=== PATIENT | female | born 1950 | race Caucasian/White ===

== ENCOUNTER → 2016-04-14 | Outpatient (CLI) | payer MEDICARE, OTHER ==
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
--- NOTE | 2016-04-15 09:49 | MM ---
Reason for exam: screening (asymptomatic). Last mammogram was performed 1 year ago. History: Patient is postmenopausal. Family history of breast cancer in aunt. Physical Findings: A clinical breast exam by your physician is recommended on an annual basis and results should be correlated with mammographic findings. MG 3D Screening Mammo W/Cad Bilateral CC and MLO view(s) were taken. Prior study comparison: April 02, 2015, bilateral MG screening mammo w CAD. February 20, 2014, bilateral MG screening mammo w CAD. The breast tissue is almost entirely fat. There is chronic nodularity in the right breast. No significant changes when compared with prior studies. ASSESSMENT: Benign, BI-RAD 2 RECOMMENDATION: Routine screening mammogram of both breasts in 1 year.
== END | disposition home or self-care (01) ==
LOC: WWCWWP 15:42
PROVIDERS: ATTEND Obstetrics & Gynecology
DX: Z12.31 Encounter for screening mammogram for malignant neoplasm of breast (principal)
CPT/HCPCS: 77063; G0202

== ENCOUNTER → 2016-07-30 | Outpatient (CLI) | payer MEDICARE, OTHER ==
[2016-07-30 17:53] LABS: ALT 20 U/L (9-52); AST 26 U/L (14-36)
== END | disposition home or self-care (01) ==
LOC: LABWHC1 17:12
PROVIDERS: ATTEND Psychiatry & Neurology Psychiatry
DX: F33.9 Major depressive disorder, recurrent, unspecified (principal)
CPT/HCPCS: 36415; 80165; 84450; 84460

== ENCOUNTER → 2017-01-01 | Outpatient (CLI) | payer MEDICARE, OTHER ==
--- NOTE | 2017-01-05 13:18 | HM ---
HOLTER MONITOR REPORT A 24-hour Holter monitor shows sinus mechanism, heart rate 84 to 170 beats per minute. No significant pauses noted. Occasional premature beats noted. ORLIN / JOSEN: [id number] /
== END | disposition home or self-care (01) ==
LOC: RADECHMAIN 13:34
PROVIDERS: ATTEND Internal Medicine Interventional Cardiology
DX: R00.2 Palpitations (principal)
CPT/HCPCS: 93225; 93226

== ENCOUNTER → 2017-03-02 | Day surgery (SDC) | payer MEDICARE, OTHER ==
[2017-02-26 15:52] VITALS: BMI 26.1
--- NOTE | 2017-03-01 20:48 | HP ---
HISTORY AND PHYSICAL This is a 66-year-old lady with a family history of CAD, she also has hypertension, hyperlipidemia, palpitations and chest discomfort. Workup revealed that there was evidence of sinus rhythm and sinus tachycardia on a Holter, but a Lexiscan stress test revealed a moderate-sized anterior reversible defect and she was therefore advised to have a cardiac catheterization. The rationale, risks, benefits, and options were extensively discussed with the patient and she understood all details and wished to proceed with the procedure. Patient was originally scheduled for cardiac cath sometime in January, but she postponed this and it has been rescheduled due to February. She is aware of the rationale for cardiac cath, the risks, benefits, options and wishes to proceed. PAST MEDICAL HISTORY: Remarkable for some depression, question of TIA, CVA with full recovery, thyroid disease, right ankle fracture and surgery. CORONARY RISK FACTORS: The patient is a former smoker. She does not consume alcohol on a regular basis. MEDICATIONS: At home include 1. Levothyroxine. 2. Metoprolol tartrate. 3. Prevacid. 4. Inhalers. 5. Lyrica. 6. Trazodone. EXAM: On examination, blood pressure was 110/60, pulse rate about 64 per minute, regular. HEENT: Unremarkable. Fundus was not examined by me. NECK: Supple. There is no JVD. I do not hear any carotid bruit. Heart exam reveals S1, S2 heard normally without a rub, murmur or gallop. Lungs are clear. ABDOMEN: Soft, nontender. Lower extremities reveal palpable pulses. No edema. Central nervous system is normal. EKG revealed sinus mechanism with a nonspecific T-wave abnormality. IMPRESSION: 1. Chest pain with a abnormal stress test with anterior reversible defect. 2. History of depression. 3. Questionable history of transient ischemic attack in the past. 4. History of some unspecified neuropathy. RECOMMENDATIONS: I am recommending coronary angiography and intervention if indicated. Risks, benefits, options, rationale were carefully explained to the patient. She understood all details and wishes to proceed with the procedure. She was initiated on beta-blockers also. MMODL / IJN: [id number] /
[~2017-03-02] MED LIST: ALPRAZolam 0.25 MG TAB PO PRN; ALPRAZolam 0.5 MG TAB PO PRN; ASPIRIN 325 MG TAB PO STA; HEPARIN SODIUM 1,000 UN/ML (10ML VL) IV ONE; HEPARIN SODIUM 1,000 UN/ML (10ML VL) ONE; IOHEXOL 350 MG/ML 100 ML BOTTLE INJ ONE; LIDOCAINE 2% INJ 20 MG/ML (20 ML MDV) ONE; LIDOCAINE 2% INJ 20 MG/ML SQ ONE; MIDAZOLAM 2 MG/2 ML VIAL IV ONE; MIDAZOLAM 2 MG/2 ML VIAL ONE; NITROGLYCERIN SL TABS 0.4 MG TAB SUBLINGUAL PRN; RX INFO: IV CONTRAST WAS GIVEN 1 EACH MISC MISCELLANE PRN; SODIUM CHLORIDE 0.9% 1,000 ML IV SCH; SODIUM CHLORIDE 0.9% 1,000 ML in EMPTY BAG 1 BAG IV ONE; VERAPAMIL 2.5 MG/ML 2 ML AMP ONE; VERAPAMIL SYRINGE (5 MG/10 ML) INTRAARTER ONE; diphenhydrAMINE 50 MG/ML 1 ML VIAL IVP ONE; diphenhydrAMINE 50 MG/ML 1 ML VIAL ONE
[2017-03-02 08:48] VITALS: RESP 18
[2017-03-02 08:48] LABS: Basophils % (A) 0 %; CHCM 31.9; Eosinophils % (A) 0 %; HCT 41.6 % (34.0-46.0); HDW 2.15; HGB 13.2 gm/dL (11.4-16.0); Luc # (Auto) 0.02; Luc % (Auto) 0; Lymphocytes # (A) 0.4 k/uL (1.0-4.8); Lymphocytes % (A) 8 %; MCH 28.9 pg (25.0-35.0); MCHC 31.7 g/dL (31.0-37.0); MCV 91.2 fL (80.0-100.0); Mean Platelet Volume 8.7; Monocytes # (A) 0.3 k/uL (0-1.0); Monocytes % (A) 5 %; Neutrophils # (A) 4.9 k/uL (1.3-7.7); Neutrophils % (A) 86 %; RBC 4.57 m/uL (3.80-5.40); RDW 14.7 % (11.5-15.5); WBC 5.7 k/uL (3.8-10.6); WBC (Perox) 5.75
[2017-03-02 09:05] LABS: Anion Gap 10 mmol/L; Blood Urea Nitrogen 28 mg/dL (7-17); Calcium 9.8 mg/dL (8.4-10.2); Carbon Dioxide 25 mmol/L (22-30); Chloride 107 mmol/L (98-107); Glucose 122 mg/dL (74-99); Non-African American GFR(MDRD) >60 (>60 ml/min/1.73 sqM); Potassium 4.4 mmol/L (3.5-5.1); Sodium 142 mmol/L (137-145)
[2017-03-02] MEDS: MIDAZOLAM 2 MG/2 ML VIAL IV ONE ×2 (11:07→11:16)
[2017-03-02] MEDS: VERAPAMIL SYRINGE (5 MG/10 ML) IV ONE ×2 (11:15→11:28)
[2017-03-02 12:14] VITALS: TEMP 98.2
--- NOTE | 2017-03-02 12:55 | CC ---
CARDIAC CATHETERIZATION REPORT DATE OF SERVICE: 03/02/2017 PROCEDURE: Left heart catheterization, coronary angiography and left ventriculography. PERFORMED BY: Dr. Pam Singh. CLINICAL INFORMATION: Mrs. Kenzie Ritchie is a 66-year-old lady with a history of atypical chest pain, but a positive stress test with evidence of reversible defect in the anterior wall. Given this abnormality, she was advised cardiac catheterization. Risks, benefits, options, rationale were explained at length. PROCEDURE NOTE: Under local anesthesia and strict aseptic precautions, a 6-Yakut introducer was placed in the right radial artery using a micropuncture needle technique. An Ultimate 1 catheter was used to perform coronary angiography and a pigtail catheter was used to perform left ventriculography. After checking the pressures, the catheter and sheath was taken out and patient was sent to the room in stable condition. The Vasc band was applied as per protocol and saturation in the fingers of the right hand was about 97%. The patient tolerated procedure well without complications. Moderate conscious sedation time was 23 minutes. CARDIAC CATHETERIZATION FINDINGS: The left ventricular end-diastolic pressure was about 13 to 14 mmHg without any gradient across the aortic valve. CORONARY ANGIOGRAPHY FINDINGS: RIGHT CORONARY ARTERY: Technically a dominant vessel has no significant disease, minor irregularities. Distally bifurcates into a large PLV, small PDA both of which supply a fair amount of myocardium. There is no significant disease involving the distal branch of the RCA. LEFT MAIN CORONARY ARTERY: This is a short patent vessel that immediately trifurcates into LAD, circumflex and ramus intermedius. Left main itself is short and disease- free. LEFT ANTERIOR DESCENDING CORONARY ARTERY: Good caliber vessel, very tortuous, gives off 2 diagonal branches, several septal branches runs all the way to the apex and the entire inferoapical wall is supplied by the distal LAD, which seems to also provide some septal branches in the PDA distribution. The LAD therefore is a very large distribution vessel has no significant disease, gives of diagonal branches and the distal LAD seems to be effective PDA branch for this patient supplying some septal branches as well. RAMUS INTERMEDIUS: Small caliber small distribution vessel that bifurcates into 2 small branches, has minor irregularities. No significant disease. LEFT POSTERIOR CIRCUMFLEX CORONARY ARTERY: Single vessel that runs laterally, supplies a fair amount of myocardium and distal vessel is small in caliber and distribution. No significant disease. Minor irregularities noted. LEFT VENTRICULOGRAM: This was performed in 30-degree MOHAN projection. There was ventricular ectopy. Ejection fraction is at least 60%. There was catheter-induced mitral regurgitation. FINAL IMPRESSION: This patient has a right dominant system. There is no significant obstructive coronary artery disease. Filling pressures are normal. Ejection fraction 60% with some ventricular ectopy. RECOMMENDATION: Findings were discussed with the patient. There was no family available. Continued medical therapy with risk factor modification is advised. Patient will be discharged later on today and she will be seen in the office in 1 week. MMODL / IJN: [id number] /
[2017-03-02 17:42] VITALS: BP 110/56; PULSE 62
== END ==
LOC: CATHCVL 08:10
PROVIDERS: ATTEND Internal Medicine Interventional Cardiology
DX: I20.0 Unstable angina (principal); I10 Essential (primary) hypertension; R94.39 Abnormal result of other cardiovascular function study; Z82.49 Family history of ischemic heart disease and other diseases of the circulatory system; E78.5 Hyperlipidemia, unspecified; F32.9 Major depressive disorder, single episode, unspecified; E07.9 Disorder of thyroid, unspecified; Z87.891 Personal history of nicotine dependence; Z79.899 Other long term (current) drug therapy
CPT/HCPCS: 80048; 85025; 93458

== ENCOUNTER → 2017-03-09 | Outpatient (CLI) | payer MEDICARE, OTHER | END | disposition home or self-care (01) | LOC: LABWHC1 10:17 | PROVIDERS: ATTEND Psychiatry & Neurology Psychiatry | DX: F33.9 Major depressive disorder, recurrent, unspecified (principal) | CPT/HCPCS: 36415; 80164; 84450; 84460 ==

== ENCOUNTER → 2017-06-08 | Outpatient (CLI) | payer MEDICARE, OTHER ==
--- NOTE | 2017-06-08 23:49 | WWHP ---
[facility] - HISTORY AND PHYSICAL CHIEF COMPLAINT: The patient is here for her routine gynecologic exam and mammogram. HISTORY OF PRESENT ILLNESS: This is a 66-year-old, G1, P1 with an LMP of 1999. The patient is without gynecologic complaints and denies any postmenopausal bleeding. PAST MEDICAL HISTORY: Fibromyalgia, arthritis, hypothyroidism, depression, OCD, schizophrenia, mitral valve prolapse, mild asthma and history of osteopenia. MEDICATIONS: 1. Trazodone 100 mg daily. 2. Alprazolam 0.5 mg 1 b.i.d. p.r.n. 3. Fluticasone spray 50 mcg as directed. 4. Lyrica 100 mg t.i.d. 5. Tolterodine 4 mg 1 daily. 6. Lansoprazole 15 mg 1 daily. 7. Levothyroxine 50 mcg 1 daily. 8. Ibuprofen 600 mg b.i.d. 9. Elmiron 100 mg t.i.d. 10.Cyclobenzaprine 10 mg t.i.d. ALLERGIES: SULFA and MILK PRODUCTS. PAST SURGICAL HISTORY: Epigastric hernia repair in the , multiple colonoscopies most recently done approximately 2011, total hip replacement surgery on the left 2002, ankle surgery 2009, toe surgery in 1989 SOCIAL HISTORY: She denies tobacco, alcohol and drug use. She did use marijuana and tried cocaine in the , but denies any current use. She is single and is not seeing anybody at this time. She does help her father and is unemployed. FAMILY HISTORY: Unchanged from the 2014 H and P. REVIEW OF SYSTEMS: She has lost about 11 pounds over the last year. She denies respiratory or cardiac problems. GI: She states she can have slight rectal incontinence with some slight leakage of liquid at times. She denies maltreatment. She did fall last year and she did have a leg injury on the left. : She denies any significant urinary leakage, but does have occasional nighttime urgency. PHYSICAL EXAM: Blood pressure 104/49, height 5 feet 11 inches, weight 186 pounds, BMI 26. Temperature 96.1, pulse 64. This is a well-developed, well-nourished white female, who is alert and oriented x3, in no acute distress. HEENT is within normal limits. NECK: Supple without mass or thyromegaly. CHEST AND LUNGS: Clear to auscultation. HEART: Regular rate and rhythm. Breasts are without mass or discharge. Axillary is negative for adenopathy. BACK: Negative for CVA tenderness. ABDOMEN: Soft, nontender, without palpable masses. PELVIC: External genitalia reveal mild to moderate atrophy without lesions. Cervix and vagina reveal mild to moderate atrophy without lesions. There is no evidence of prolapse. The uterus is mid position, nongravid size and nontender. There are no palpable adnexal masses or tenderness. Rectovaginal is negative for mass or tenderness and is negative for occult blood. EXTREMITIES: Nontender. IMPRESSION: 1. A 66-year-old menopausal female with normal gynecologic exam. 2. History of multiple medical problems. 3. Occasional rectal incontinence. PLAN: 1. Pap smear was deferred since she had a normal one less than 2 years ago. 2. Self-breast examination was discussed. 3. Screening mammogram will be done today. 4. Osteoporosis prevention was discussed. I have recommended bone density screening and a slip was given to the patient for this. 5. We have discussed Kegel exercises for the slight rectal incontinence. An instructions sheet was given to the patient for this. 6. She did receive a flu shot this past fall. 7. She will return in 1 year. MMODL / IJN: [id number] /
--- NOTE | 2017-06-09 11:17 | MM ---
Reason for exam: screening (asymptomatic). Last mammogram was performed 1 year and 2 months ago. History: Patient is postmenopausal. Family history of breast cancer in aunt. Physical Findings: A clinical breast exam by your physician is recommended on an annual basis and results should be correlated with mammographic findings. MG 3D Screening Mammo W/Cad Bilateral CC and MLO view(s) were taken. Prior study comparison: April 14, 2016, bilateral MG 3d screening mammo w/cad. April 02, 2015, bilateral MG screening mammo w CAD. There are scattered fibroglandular densities. There is no discrete abnormality. No significant changes when compared with prior studies. ASSESSMENT: Negative, BI-RAD 1 RECOMMENDATION: Routine screening mammogram of both breasts in 1 year.
== END | disposition home or self-care (01) ==
LOC: WWCWWP 13:27
PROVIDERS: ATTEND Obstetrics & Gynecology
DX: Z12.31 Encounter for screening mammogram for malignant neoplasm of breast (principal)
CPT/HCPCS: 77063; 77067

== ENCOUNTER → 2018-01-11 | Outpatient (CLI) | payer MEDICARE, OTHER ==
[2018-01-12 10:42] LABS: Valproic Acid (Depakene) 61.3 ug/mL
== END | disposition home or self-care (01) ==
LOC: LABWHC1 13:27
PROVIDERS: ATTEND Psychiatry & Neurology Psychiatry
DX: F33.9 Major depressive disorder, recurrent, unspecified (principal)
CPT/HCPCS: 36415; 80164; 84450; 84460

== ENCOUNTER → 2018-05-16 | Outpatient (CLI) | payer MEDICARE, OTHER ==
--- NOTE | 2018-05-16 15:20 | XR ---
EXAMINATION TYPE: XR foot complete bilateral DATE OF EXAM: 05/16/2018 CLINICAL HISTORY: Bilateral foot pain worse midfoot level. TECHNIQUE: Frontal, lateral, and oblique images of the bilateral feet are obtained. COMPARISON: None FINDINGS: Overlying bandage material is present bilaterally midfoot level making evaluation suboptima l. No acute fracture or dislocation is clearly seen. Flexion in the toes most prominent fourth and fi fth toes bilaterally is present. Evidence of prior bunion correction surgery first metatarsophalangeal joint right foot is noted. Surg ical change right ankle level is partially imaged there is evidence of old trauma fifth proximal phal anx right foot. IMPRESSION: As above.
== END | disposition home or self-care (01) ==
LOC: RADXRMAIN 14:39
PROVIDERS: ATTEND Podiatrist
DX: M19.079 Primary osteoarthritis, unspecified ankle and foot (principal); Z98.890 Other specified postprocedural states

== ENCOUNTER → 2018-08-24 | Outpatient (CLI) | payer MEDICARE, OTHER ==
[2018-08-25 02:55] LABS: Valproic Acid (Depakene) 57.1 ug/mL (50.0-100.0)
== END ==
LOC: LABWHC1 17:20
PROVIDERS: ATTEND Psychiatry & Neurology Psychiatry
DX: F29 Unspecified psychosis not due to a substance or known physiological condition (principal)
CPT/HCPCS: 36415; 80164; 84450; 84460